=== PATIENT | male | born 1980 | race Hispanic/Latino ===

== ENCOUNTER 2016-08-19 15:18 | Emergency (ER) | payer SELFPAY ==
[2016-08-19] MEDS ORDERED: NORCO 5/325 PO ONE (17:55)
[2016-08-19] MEDS ORDERED: MOTRIN PO ONE (17:55)
--- NOTE | 2016-08-19 17:57 | Emergency Department Report ---
ED Fall HPI - General Chief Complaint: Eye Problems Stated Complaint: FELL/POSS BROKEN RIBS Time Seen by Provider: 08/19/16 17:53 Source: patient Mode of arrival: Ambulatory - History of Present Illness Initial Comments: Patient reports that he accidentally fell through four wooden steps that he was doing work on and struck his right chest and right wrist five days ago. Complaint: fall Onset/Timin -: days(s) Fall From: down stairs (#) (4) When Fall Occurred: # days [employer] SHAVING AND SPLITTING (5) Fall Witnessed: yes, by family Place Fall Occurred: home Loss of Consciousness: none Prolonged Down Time?: no Symptoms Prior to Fall: none Location: chest, other (right wrist) Severity: severe Severity scale (0 -10): 10 Quality: aching Context: tripped/slipped Associated Symptoms: denies, chest paint. denies: headache, neck pain, numbness , weakness, shortness of breath, abdominal pain, hematuria, unable to walk, lightheaded, vertigo, confusion - Related Data Previous Rx's Medication Instructions Recorded Last Taken Type Acetaminophen/Codeine 1 tab PO Q6H PRN #12 tab 08/19/16 Unknown Rx [Acetaminophen-Codeine #3 TAB] Allergies Allergy/AdvReac Type Severity Reaction Status Date / Time Penicillins Allergy Hives Verified 08/19/16 18:03 ED Review of Systems ROS: Stated complaint: FELL/POSS BROKEN RIBS Other details as noted in HPI Constitutional: denies: chills, diaphoresis, fever, malaise, weakness Eyes: denies: eye pain, eye discharge, vision change ENT: denies: ear pain, throat pain, dental pain, hearing loss, epistaxis, congestion Respiratory: denies: cough, orthopnea, shortness of breath, SOB with exertion, SOB at rest, stridor, wheezing Cardiovascular: chest pain (right side). denies: palpitations, dyspnea on exertion, orthopnea, edema, syncope, paroxysmal nocturnal dyspnea Gastrointestinal: denies: abdominal pain, nausea, vomiting, diarrhea, constipation Musculoskeletal: arthralgia (right wrist). denies: back pain, joint swelling, myalgia Skin: denies: rash, lesions, change in color, change in hair/nails, pruritus Neurological: denies: headache, weakness, numbness, paresthesias, confusion, abnormal gait, vertigo Psychiatric: denies: anxiety, depression Hematological/Lymphatic: denies: easy bleeding, easy bruising, swollen glands ED Past Medical Hx - Past Medical History Previous Medical History?: No - Surgical History Past Surgical History?: No - Social History Smoking Status: Never Smoker Substance Use Type: Alcohol - Medications Home Medications: Home Medications Medication Instructions Recorded Confirmed Last Taken Type Acetaminophen/Codeine 1 tab PO Q6H PRN #12 tab 08/19/16 Unknown Rx [Acetaminophen-Codeine #3 TAB] ED Physical Exam - General Limitations: No Limitations General appearance: alert, in no apparent distress - Head Head exam: Present: atraumatic - Eye Eye exam: Present: normal appearance Pupils: Present: normal accommodation - ENT ENT exam: Present: normal exam, mucous membranes moist. Absent: mucous membranes dry - Neck Neck exam: Present: normal inspection, full ROM. Absent: tenderness, meningismus, lymphadenopathy, thyromegaly - Respiratory Respiratory exam: Present: normal lung sounds bilaterally, chest wall tenderness (right side tenderness). Absent: respiratory distress, wheezes, rales, rhonchi, stridor, accessory muscle use, decreased breath sounds, prolonged expiratory - Cardiovascular Cardiovascular Exam: Present: regular rate, normal rhythm, normal heart sounds. Absent: systolic murmur, diastolic murmur, rubs, gallop, clicks, JVD, S3, S4 - GI/Abdominal GI/Abdominal exam: Present: soft, normal bowel sounds. Absent: distended, tenderness, guarding, rebound, rigid - Extremities Exam Extremities exam: Present: normal inspection, full ROM, normal capillary refill. Absent: tenderness, pedal edema, joint swelling, calf tenderness - Expanded Upper Extremity Exam Right Elbow exam: Present: normal inspection, full ROM. Absent: tenderness, swelling , abrasion, laceration, ecchymosis, deformity, crepidus, dislocation, erythema, effusion, pain w/ pronation/supination, tenderness over radial head Forearm Wrist exam: Present: normal inspection, full ROM, tenderness, swelling, ecchymosis. Absent: abrasion, laceration, deformity, crepidus, dislocation, erythema, tenderness over anatomical snuff box, pain with axial thumb loading Hand Wrist exam: Present: normal inspection, full ROM. Absent: tenderness, swelling, abrasion, laceration, ecchymosis, deformity, crepidus, dislocation, erythema, amputation, nail avulsion, subungual hematoma Neuro motor exam: Present: wrist extension intact, thumb opposition intact, thumb IP flexion intact, thumb adduction intact, fingers 2-5 abduction intact Neurosensory exam: Present: 2-point discrimination, radial nerve intact, ulnar nerve intact, median nerve intact Vascular: Present: normal capillary refill, radial pulse (2+), brachial pulse (2 +), ulnar pulse (2+). Absent: vascular compromise, Pallo, pulse deficit radial art, pulse deficit ulnar art, pulse deficit brachial art - Back Exam Back exam: Present: normal inspection, full ROM. Absent: tenderness, CVA tenderness (R), CVA tenderness (L), muscle spasm - Neurological Exam Neurological exam: Present: alert, oriented X3, CN II-XII intact, normal gait, reflexes normal. Absent: motor sensory deficit - Psychiatric Psychiatric exam: Present: normal affect, normal mood - Skin Skin exam: Present: warm, dry, intact, normal color. Absent: rash ED Course Vital Signs 08/19/16 15:51 Temperature 98.7 F Pulse Rate 95 H Respiratory 18 Rate Blood Pressure 137/84 O2 Sat by Pulse 96 Oximetry - Reevaluation(s) Reevaluation #1: 08/19/16 17:58 analgesic, pain medication and radiology studies ordered ED Medical Decision Making - Lab Data Vital Signs 08/19/16 15:51 Temperature 98.7 F Pulse Rate 95 H Respiratory 18 Rate Blood Pressure 137/84 O2 Sat by Pulse 96 Oximetry - Radiology Data Radiology results: image reviewed Right Wrist X-Ray: Normal Impression - Medical Decision Making During the course of ED, analgesic, pain medication and radiology studies ordered. The wrist imaging was normal. Patient was sent home with a prescription for Tylenol #3, instructed to follow up with the selective referral given at discharge, he verbalized understanding - Differential Diagnosis Right Chest Wall Pain, Right Wrist Pain Critical care attestation.: If time is entered above; I have spent that time in minutes in the direct care of this critically ill patient, excluding procedure time. ED Disposition Clinical Impression: Musculoskeletal chest pain Disposition: DISCHARGED TO HOME OR SELFCARE Is pt being admited?: No Does the pt Need Aspirin: No Condition: Stable Instructions: Musculoskeletal Pain (ED), Chest Pain (ED) Additional Instructions: Take medication as directed. No drinking or driving while taking medications. Follow up with the selective referral given at discharge. Prescriptions: Acetaminophen/Codeine [Acetaminophen-Codeine #3 TAB] 1 tab PO Q6H PRN #12 tab PRN Reason: Pain Referrals: PRIMARY CAREMD [Primary Care Provider] - 3-5 Days CHARLES JAVED MD [Staff Physician] - 3-5 Days Forms: Work/School Release Form(ED) Time of Disposition: 19:14
--- NOTE | 2016-08-19 19:03 | XRay Report ---
FINAL REPORT PROCEDURE: XR WRIST 3 RT TECHNIQUE: RIGHT wrist radiographs, including AP, lateral, oblique, and navicular views. HISTORY: Right wrist pain/fall. COMPARISON: No prior studies are available for comparison. FINDINGS: Fracture(s)and/or Dislocation(s): None. Alignment: Normal. Joint space(s): Normal. Soft tissues: Normal. Bone mineralization: Normal. Foreign bodies: None. IMPRESSION: Normal Examination
--- NOTE | 2016-08-19 19:32 | XRay Report ---
FINAL REPORT PROCEDURE: XR RIBS BILAT 3V TECHNIQUE: Bilateral rib radiographs, minimum of 4 views, including PA projection. CPT 76267 HISTORY: Fall, right chest wall pain. COMPARISON: No prior studies are available for comparison. FINDINGS: Heart: Normal . Mediastinum/Vessels: Normal . Lungs: Minimal right lower lobe opacity. Pleural space: Normal . Pneumothorax: None . Bony thorax/ribs: No acute or displaced rib fractures. IMPRESSION: Minimal right lower lobe opacity, consider mild atelectasis or subtle contusion. No radiographic evidence of displaced rib fracture or pneumothorax. Consider PA and lateral chest radiograph or even chest CT for further characterization depending on clinical concern for intrathoracic injury.
--- NOTE | 2016-08-19 20:40 | Cat Scan Report ---
FINAL REPORT EXAM: CT CHEST WO CON HISTORY: poss mild atelectasis,cp TECHNIQUE: Standard unenhanced CT of the chest at 2.5 mm axial increments. Coronal and sagittal reconstruction was also obtained. PRIORS: Bilateral rib x-rays and CXR 08/19/2016 FINDINGS: There is linear atelectasis noted in the posterior right lung base which corresponds to findings on recent CXR. There is a 6 mm fissural lymph node in the anterior minor fissure (axial image 56). There is a tiny right pleural effusion. There is no evidence for consolidation, vascular congestion, or pneumothorax. There is no evidence for mediastinal, hilar, or axillary adenopathy. The esophagus is collapsed. The trachea is midline. Cardiovascular structures are within normal limits. Cardiac size and aorta are normal. Images through the lung bases include upper abdomen which show no abnormality of the visualized abdominal viscera. Bony structures show no focal abnormalities. No evidence for bony fracture is seen. IMPRESSION: 1. Small amount of right lower lobe posterior atelectasis and a tiny right pleural effusion. No evidence for pneumothorax. 2. No evidence for rib fracture.
--- NOTE | 2016-08-19 21:29 | Emergency Department Report ---
Blank Doc - Documentation Documentation: 36-year-old male that fell down 4 steps and landed on his right side. This patient was picked up by me from [facility]. This provider followed up on patient's x-ray of the ribs bilateral 3 view. Impression was minimal right lower lobe O pasty consider mild atelectasis or septal contusion. No sick evidence of displaced rib fractures or pneumothorax. Consider PA and lateral chest radiograph or even chest CT for further characterization depending on clinical concerns for intrathoracic injury. This provider order a chest CT with the impressions of: Small amount of right lower lobe posterior atelectasis and a tiny right pleural effusion. No evidence of pneumothorax. #2 no evidence of rib fractures Discussed with Dr. Fatima: We will discharge patient with this insentivsomergrghy
[2016-08-19 22:06] VITALS: BP 130/87
== END 2016-08-19 22:17 | disposition home or self-care (01) ==
LOC: ED 15:18
DX: R07.89 Other chest pain (principal); W10.9XXA Fall (on) (from) unspecified stairs and steps, initial encounter; Y93.9 Activity, unspecified; Y92.9 Unspecified place or not applicable; Y99.9 Unspecified external cause status
CPT/HCPCS: 71110; 71250; 99284

== ENCOUNTER 2018-02-16 09:46 | Emergency (ER) | payer SELFPAY ==
[2018-02-16 10:25] VITALS: BP 179/108
[2018-02-16] MEDS ORDERED: MOTRIN PO ONE (11:54)
--- NOTE | 2018-02-16 11:59 | Emergency Department Report ---
ED Lower Extremity HPI - General Chief Complaint: Extremity Injury, Lower Stated Complaint: RT FOOT SHARP PAIN Time Seen by Provider: 02/16/18 11:53 Source: patient Mode of arrival: Ambulatory Limitations: No Limitations - History of Present Illness Initial Comments: This is a 37-year-old male nontoxic, well nourished in appearance, no acute signs of distress presents to the ED with c/o of intermittent bilateral foot pain 1 week. Patient stated that he has been walking a lot at work. Patient denies any trauma. Patient stated has intermittent tingling senstaion. Patient denies any numbness, fever, chills, nausea, vomiting, chest pain, shortness of breath, headache, stiff neck. Patient denies any joint swelling or joint redness. Patient denies decreased range of motion. Patient denies any decreased gait due. Patient stated allergies to PCN. Denies PMH. MD Complaint: foot injury -: week(s) (1) Injury: Foot: Right, Left Place: work Severity: mild Severity scale (0 -10): 8 Improves With: immobilization Worsens With: palpation Associated Symptoms: ambulatory. denies: snap/pop sensation, swelling, numbness , tingling, unable to bear weight, able to partially bear weight - Related Data Previous Rx's Medication Instructions Recorded Last Taken Type Acetaminophen/Codeine [Tylenol 1 tab PO Q6H PRN #12 tab 08/19/16 Unknown Rx /Codeine # 3 tab] Ibuprofen [Motrin] 600 mg PO Q8H PRN #30 tablet 02/16/18 Unknown Rx Allergies Allergy/AdvReac Type Severity Reaction Status Date / Time Penicillins Allergy Hives Verified 08/19/16 18:03 ED Review of Systems ROS: Stated complaint: RT FOOT SHARP PAIN Other details as noted in HPI Constitutional: denies: chills, fever Eyes: denies: eye pain, eye discharge, vision change ENT: denies: ear pain, throat pain Respiratory: denies: cough, shortness of breath, wheezing Cardiovascular: denies: chest pain, palpitations Endocrine: no symptoms reported Gastrointestinal: denies: abdominal pain, nausea, diarrhea Genitourinary: denies: urgency, dysuria Musculoskeletal: arthralgia. denies: back pain, joint swelling Skin: denies: rash, lesions Neurological: denies: headache, weakness, paresthesias Psychiatric: denies: anxiety, depression Hematological/Lymphatic: denies: easy bleeding, easy bruising ED Past Medical Hx - Past Medical History Previous Medical History?: No - Surgical History Past Surgical History?: No - Social History Smoking Status: Current Every Day Smoker Substance Use Type: Alcohol - Medications Home Medications: Home Medications Medication Instructions Recorded Confirmed Last Taken Type Acetaminophen/Codeine [Tylenol 1 tab PO Q6H PRN #12 tab 08/19/16 Unknown Rx /Codeine # 3 tab] Ibuprofen [Motrin] 600 mg PO Q8H PRN #30 tablet 02/16/18 Unknown Rx ED Physical Exam - General Limitations: No Limitations General appearance: alert, in no apparent distress - Head Head exam: Present: atraumatic, normocephalic - Eye Eye exam: Present: normal appearance - ENT ENT exam: Present: mucous membranes moist - Neck Neck exam: Present: normal inspection - Respiratory Respiratory exam: Present: normal lung sounds bilaterally. Absent: respiratory distress - Cardiovascular Cardiovascular Exam: Present: regular rate, normal rhythm. Absent: systolic murmur, diastolic murmur, rubs, gallop - GI/Abdominal GI/Abdominal exam: Present: soft, normal bowel sounds - Rectal Rectal exam: Present: deferred - Extremities Exam Extremities exam: Present: normal inspection, full ROM, normal capillary refill. Absent: tenderness, joint swelling - Expanded Lower Extremity Exam Left Hip exam: Present: normal inspection (bilateral exam), full ROM (bilateral exam) . Absent: tenderness, swelling Upper Leg exam: Present: normal inspection (bilateral exam), full ROM ( bilateral exam). Absent: tenderness, swelling Knee exam: Present: normal inspection (bilateral exam), full ROM (bilateral exam ). Absent: tenderness, swelling Lower Leg exam: Present: normal inspection (bilateral exam), full ROM ( bilateral exam). Absent: tenderness, swelling Ankle exam: Present: normal inspection (bilateral exam), full ROM (bilateral exam). Absent: tenderness, swelling, abrasion, laceration, ecchymosis, deformity, crepidus, dislocation, erythema, anterior draw sign Foot/Toe exam: Present: normal inspection (bilateral exam), full ROM (bilateral exam). Absent: tenderness, swelling, laceration, ecchymosis, deformity, crepidus, dislocation, erythema, amputation, puncture wound, foreign body, calcaneal tenderness, tenderness at base of 5th metatarsal, nail avulsion, subungual hematoma Neuro vascular tendon exam: Present: no vascular compromise (bilateral exam). Absent: pulse deficit, abnormal cap refill, motor deficit, sensory deficit, tendon deficit, extremity cold to touch, pallor, abnormal 2-point discrimination , decreased fine/light touch, foot drop, peroneal nerve deficit, significant pain with passive ROM of distal joint Gait: Positive: observed and limited by pain (bilateral exam) - Back Exam Back exam: Present: normal inspection, full ROM - Neurological Exam Neurological exam: Present: alert, oriented X3 - Psychiatric Psychiatric exam: Present: normal affect, normal mood - Skin Skin exam: Present: warm, dry, intact, normal color. Absent: rash ED Course Vital Signs 02/16/18 10:23 Temperature 99.1 F Pulse Rate 99 H Respiratory 20 Rate Blood Pressure 179/108 O2 Sat by Pulse 100 Oximetry - Reevaluation(s) Reevaluation #1: 02/16/18 12:00 Patient is speaking in full sentences with no signs of distress noted. ED Lower Extremity MDM - Medical Decision Making This is a 37-year-old male that presents with bilateral foot strain. Patient is stable and was examined by me. I referred patient to an orthopedic doctor for further evaluation for possible MRI. X-ray has been obtained and dictated by the radiologist. Patient is notified of the x-ray report with noted by the patient. Patient does have normal gait with no tenderness and no joint swelling. No ecchymosis. no joint redness or swelling. Not warm to touch. No signs of cellulites present. Patient was instructed to RICE therapy. Patient received Motrin for pain. Patient is discharged with Motrin. At time of discharge, the patient does not seem toxic or ill in appearance. No acute signs of distress noted. Patient agrees to discharge treatment plan of care. No further questions noted by the patient. Critical care attestation.: If time is entered above; I have spent that time in minutes in the direct care of this critically ill patient, excluding procedure time. ED Disposition Clinical Impression: Strain of foot Qualifiers: Encounter type: initial encounter Laterality: unspecified laterality Qualified Code(s): S96.919A - Strain of unspecified muscle and tendon at ankle and foot level, unspecified foot, initial encounter Disposition: TO HOME OR SELFCARE Is pt being admited?: No Does the pt Need Aspirin: No Condition: Stable Instructions: RICE Therapy (ED) Additional Instructions: Follow-up with a primary care/orthopedic doctor in 3-5 days or if symptoms worsen and continue return to emergency room as soon as possible. Prescriptions: Ibuprofen [Motrin] 600 mg PO Q8H PRN #30 tablet PRN Reason: Pain Referrals: PRIMARY CARE, [Primary Care Provider] - 3-5 Days ELVIE RIVERS MD [Staff Physician] - 3-5 Days [facility] [Outside] - 3-5 Days [facility] [Outside] - 3-5 Days KAREEM UPTON MD [Staff Physician] - 3-5 Days Forms: Work/School Release Form(ED)
--- NOTE | 2018-02-16 13:28 | XRay Report ---
BILATERAL FEET RADIOGRAPHS INDICATION: Bilateral foot pain. COMPARISON: None similar. FINDINGS: AP, lateral and oblique views of both feet demonstrate normal bony articulation. No focal suspicious erosions. Unremarkable soft tissues. Small dorsal calcaneal spur incidentally noted on the right. CONCLUSION: No acute bony abnormality, as described. Thank you for the opportunity to participate in this patient's care.
== END 2018-02-16 13:44 | disposition home or self-care (01) ==
LOC: ED 09:46
DX: S96.911A Strain of unspecified muscle and tendon at ankle and foot level, right foot, initial encounter (principal); S96.912A Strain of unspecified muscle and tendon at ankle and foot level, left foot, initial encounter; F17.200 Nicotine dependence, unspecified, uncomplicated; Z88.0 Allergy status to penicillin; X58.XXXA Exposure to other specified factors, initial encounter; Y93.89 Activity, other specified; Y92.69 Other specified industrial and construction area as the place of occurrence of the external cause; Y99.8 Other external cause status
CPT/HCPCS: 99283

== ENCOUNTER 2018-07-25 16:28 | Emergency (ER) | payer OTHER ==
--- NOTE | 2018-07-25 17:21 | Emergency Department Report ---
Chief Complaint: Eye Problems Stated Complaint: RT EYE PINK Time Seen by Provider: 07/25/18 17:16 - HPI History of Present Illness: Pt presents with erythema of the right eye that began yesterday (+) eyelashes matting, clear drainage no fever, no contact usage No PMHx/PSHx MSE complete MSE screening note: Focused history and physical exam performed. ED Disposition for MSE Condition: Stable
--- NOTE | 2018-07-25 18:26 | Emergency Department Report ---
[facility] Chief Complaint: Eye Problems Stated Complaint: RT EYE PINK Time Seen by Provider: 07/25/18 17:16 Duration: 1 Day Side: Right Severity: mild Symptoms: Yes Eye Itching, Yes Eye Redness, Yes Eye Pain, Yes Mucous Drainage, No Purulent Drainage, No Blurred Vision, No Preceding URI, No H/O Allergic Rhinitis, No Contact Lens Use, No Trauma, No Fever, No Headache Other History: Pt is a 38 yo male who presents to the ED with c/o erythema to the right eye for one day. He has associated itching, drainage, and eyelash matting on the right. He denies any contact use. Denies any fever or anything coming in contact with the eye. No PMHx, pt has not tried anything to alleviate the eye discomfort. ED Review of Systems ROS: Stated complaint: RT EYE PINK Other details as noted in HPI Comment: All other systems reviewed and negative Eyes: as per HPI ED Past Medical Hx - Past Medical History Previous Medical History?: No Hx Hypertension: No Hx CVA: No Hx Heart Attack/AMI: No Hx Congestive Heart Failure: No Hx Diabetes: No Hx Deep Vein Thrombosis: No Hx Pulmonary Embolism: No Hx GERD: Yes Hx Liver Disease: No Hx Renal Disease: No Hx of Cancer: No Hx Sickle Cell Disease: No Hx Arthritis: No Hx Headaches / Migraines: No Hx Seizures: No Hx Kidney Stones: No Hx Psychiatric Treatment: No Hx Asthma: No Hx COPD: No Hx Tuberculosis: No Hx Dementia: No Hx HIV: No - Surgical History Past Surgical History?: No Hx Coronary Stent: No Hx Open Heart Surgery: No Hx Pacemaker: No Hx Internal Defibrillator: No Hx Cholecystectomy: No Hx Appendectomy: No Hx Breast Surgery: No - Social History Smoking Status: Current Every Day Smoker Substance Use Type: None - Medications Home Medications: Home Medications Medication Instructions Recorded Confirmed Last Taken Type Acetaminophen/Codeine [Tylenol 1 tab PO Q6H PRN #12 tab 08/19/16 Unknown Rx /Codeine # 3 tab] Ibuprofen [Motrin 600 MG tab] 600 mg PO Q8H PRN #30 tablet 02/16/18 Unknown Rx Polymyxin B Sulf/Trimethoprim 10 ml OP Q4-6H 7 Days drops 07/25/18 Unknown Rx [Polytrim Eye Drops] [facility] Exam - Exam General: Vital signs noted. No distress. Alert and acting appropriately. Eye Exam: Right Injection, Right Mucous Discharge, Neither Abnormal Pupil, Neither EOMI, Neither Eye Foreign Body, Neither Lid Foreign Body, Neither Purulent Discharge HEENT: No Nasal Congestion, No Pharyngeal Erythema Remainder of HEENT: Normal Lungs: Yes Good Air Exchange, No Wheezes, No Stridor, No Cough, No Nasal Flaring, No Retractions, No Use of Accessory Muscles ED Course Vital Signs 07/25/18 17:17 Temperature 97.8 F Pulse Rate 88 Respiratory 18 Rate Blood Pressure 134/86 Blood Pressure 134/86 [Right] O2 Sat by Pulse 97 Oximetry ED Medical Decision Making - Differential Diagnosis conjunctivitis Critical care attestation.: If time is entered above; I have spent that time in minutes in the direct care of this critically ill patient, excluding procedure time. ED Disposition Clinical Impression: Conjunctivitis Qualifiers: Conjunctivitis type: acute Acute conjunctivitis type: unspecified Laterality: right Qualified Code(s): H10.31 - Unspecified acute conjunctivitis, right eye Disposition: - TO HOME OR SELFCARE Is pt being admited?: No Does the pt Need Aspirin: No Condition: Stable Instructions: Conjunctivitis (ED) Additional Instructions: Advised pt to follow up if new or worsening sx. Discussed polytrim drops. Advised pt not to rub eyes due to being contagious. Prescriptions: Polymyxin B Sulf/Trimethoprim [Polytrim Eye Drops] 10 ml OP Q4-6H 7 Days drops Time of Disposition: 18:29
== END 2018-07-25 18:40 | disposition home or self-care (01) ==
LOC: ED 16:28
CPT/HCPCS: 99282

== ENCOUNTER 2018-12-12 18:00 | Emergency (ER) | payer SELFPAY ==
--- NOTE | 2018-12-12 18:20 | Emergency Department Report ---
Blank Doc - Documentation Documentation: This is a 38-year-old male that presents with medical clearance for drug rehab program. Denies any SI/HI. Denies any other complaints or symptoms. This initial assessment/diagnostic orders/clinical plan/treatment(s) is/are subject to change based on patient's health status, clinical progression and re- assessment by fellow clinical providers in the ED. Further treatment and workup at subsequent clinical providers discretion. Patient/guardians urged not to elope from the ED as their condition may be serious if not clinically assessed and managed. Initial orders include: 1- Patient sent to [facility] for further evaluation and treatment 2- labs 3- UA
[2018-12-12 18:22] VITALS: BP 147/99
[2018-12-12 19:32] LABS: Basophils # (Auto) 0.1 K/mm3 (0.0-0.1); Basophils % (Auto) 1.1 % (0.0-1.8); Eosinophils # (Auto) 0.7 K/mm3 (0.0-0.4); Eosinophils % (Auto) 6.1 % (0.0-4.3); Hematocrit 49.1 % (35.5-45.6); Hemoglobin 16.5 gm/dl (11.8-15.2); Lymphocytes # (Auto) 3.7 K/mm3 (1.2-5.4); Lymphocytes % (Auto) 31.4 % (13.4-35.0); Mean Corpuscular HGB Conc 34 % (32-34); Mean Corpuscular Volume 91 fl (84-94); Monocytes # (Auto) 1.2 K/mm3 (0.0-0.8); Monocytes % (Auto) 10.4 % (0.0-7.3); Red Blood Count 5.41 M/mm3 (3.65-5.03); Red Cell Distribution Width 13.1 % (13.2-15.2)
[2018-12-12 19:36] LABS: BUN/Creatinine Ratio 13; Blood Urea Nitrogen 15 mg/dL (9-20); Calcium 9.1 mg/dL (8.4-10.2); Hemolysis Index 16; Platelet Count 291 K/mm3 (140-440)
[2018-12-12 19:57] LABS: Bilirubin,Urine NEG (Negative); Blood,Urine NEG (Negative); Color,Urine Yellow (Yellow); Mucus,Urine FEW /HPF; Protein,Urine <15 mg/dL mg/dL (Negative); Urobilinogen,Urine < 2.0 mg/dL (<2.0)
[2018-12-12 20:03] LABS: Benzodiazepines Screen,Urine PRESUMPTIVE NEGATIVE; Cannabinoid Screen,Urine PRESUMPTIVE NEGATIVE; Cocaine Screen,Urine PRESUMPTIVE NEGATIVE; Methadone Screen,Urine PRESUMPTIVE NEGATIVE; Opiate Screen,Urine PRESUMPTIVE NEGATIVE
[2018-12-12 20:17] LABS: Amphetamine Screen,Urine PRESUMPTIVE POSITIVE
--- NOTE | 2018-12-12 21:47 | Emergency Department Report ---
HPI - General Chief Complaint: Medical Clearance Time Seen by Provider: 12/12/18 18:19 - HPI HPI: HERE FOR MED CLEARANCE TO GO TO [facility] LAST USED METH 4 DAYS AGO DENIES OTHER DRUGS. DENIES THC POS CIG DENIES ETOH CALM AND COOPERATIVE VSS NO PHYSICAL COMPLAINTS ED Past Medical Hx - Past Medical History Hx Hypertension: No Hx CVA: No Hx Heart Attack/AMI: No Hx Congestive Heart Failure: No Hx Diabetes: No Hx Deep Vein Thrombosis: No Hx Pulmonary Embolism: No Hx GERD: Yes Hx Liver Disease: No Hx Renal Disease: No Hx Sickle Cell Disease: No Hx Arthritis: No Hx Headaches / Migraines: No Hx Seizures: No Hx Kidney Stones: No Hx Psychiatric Treatment: Yes (Meth user) Hx Asthma: No Hx COPD: No Hx Tuberculosis: No Hx Dementia: No Hx HIV: No - Surgical History Past Surgical History?: No Hx Coronary Stent: No Hx Open Heart Surgery: No Hx Pacemaker: No Hx Internal Defibrillator: No Hx Cholecystectomy: No Hx Appendectomy: No Hx Breast Surgery: No - Family History Family history: no significant - Social History Smoking Status: Current Every Day Smoker Substance Use Type: Methamphetamines - Medications Home Medications: Home Medications Medication Instructions Recorded Confirmed Last Taken Type Acetaminophen/Codeine [Tylenol 1 tab PO Q6H PRN #12 tab 08/19/16 Unknown Rx /Codeine # 3 tab] Ibuprofen [Motrin 600 MG tab] 600 mg PO Q8H PRN #30 tablet 02/16/18 Unknown Rx Polymyxin B Sulf/Trimethoprim 10 ml OP Q4-6H 7 Days drops 07/25/18 Unknown Rx [Polytrim Eye Drops] ED Review of Systems ROS: Stated complaint: MEDICAL CLEARANCE Other details as noted in HPI Comment: All other systems reviewed and negative Physical Exam - Physical Exam Vital Signs: Vital Signs 12/12/18 18:18 Temperature 98.1 F Pulse Rate 105 H Respiratory 18 Rate Blood Pressure 147/99 O2 Sat by Pulse 98 Oximetry Physical Exam: ALERT AND ORIENTED NO FOCAL DEF S1 S2 HR 100 ON EXAM LUNGS CTA ABD SOFT NON TENDER AMBULATORY ED Course Vital Signs 12/12/18 18:18 Temperature 98.1 F Pulse Rate 105 H Respiratory 18 Rate Blood Pressure 147/99 O2 Sat by Pulse 98 Oximetry ED Medical Decision Making - Lab Data Result diagrams: 12/12/18 18:33 12/12/18 18:33 - Medical Decision Making METH ABUSE NO PHYSICAL OR MEDICAL REASON PT COULD NOT GO TO REHAB MEDICALLY CLEARED DC TO GO TO REHAB WITH FAMILY Vital Signs 12/12/18 18:18 Temperature 98.1 F Pulse Rate 105 H Respiratory 18 Rate Blood Pressure 147/99 O2 Sat by Pulse 98 Oximetry - Differential Diagnosis MED CLEARANCE Critical care attestation.: If time is entered above; I have spent that time in minutes in the direct care of this critically ill patient, excluding procedure time. ED Disposition Clinical Impression: Medical clearance for psychiatric admission Disposition: [id number] TO HOME OR SELFCARE Is pt being admited?: No Does the pt Need Aspirin: No Condition: Stable Additional Instructions: MEDICALLY CLEARED FOR PSYCHIATRIC/DRUG REHAB CARE Referrals: HAWA PERKINS MD [Staff Physician] - 3-5 Days Time of Disposition: 21:46
== END 2018-12-12 21:55 | disposition home or self-care (01) ==
LOC: ED 18:00
DX: F15.10 Other stimulant abuse, uncomplicated (principal); F17.200 Nicotine dependence, unspecified, uncomplicated; Z79.899 Other long term (current) drug therapy
CPT/HCPCS: 36415; 80048; 80307; 80320; 81001; 85025; G0480